=== PATIENT | male | born 1965 | race Two or more races ===

== ENCOUNTER 2017-01-27 10:58 | Emergency (ER) | payer OTHER ==
[~2017-01-27] VITALS: Ht 172.7 cm; Wt 72.6 kg
[2017-01-27] MEDS ORDERED: KETOROLAC TROMETH 60MG/2ML VIAL IM ONE (13:00)
[2017-01-27] MEDS ORDERED: CYCLOBENZAPRINE HCL 10 MG TAB PO ONE (13:15)
[2017-01-27 15:41] VITALS: BP 100/55
== END 2017-01-27 15:43 | disposition home or self-care (01) ==
LOC: ER 10:58
DX: S49.91XA Unspecified injury of right shoulder and upper arm, initial encounter (principal); Z88.6 Allergy status to analgesic agent; Z88.8 Allergy status to other drugs, medicaments and biological substances; W18.39XA Other fall on same level, initial encounter; Y93.89 Activity, other specified; Y92.89 Other specified places as the place of occurrence of the external cause; Y99.8 Other external cause status
CPT/HCPCS: 73030; 73110; 96372; 99284; J1885